=== PATIENT | female | born 1950 | race Caucasian/White ===

== ENCOUNTER 2023-11-14 09:42 | Observation (INO) | payer MEDICARE, SELFPAY ==
[2023-11-14] VITALS (35 sets, daily range): BP systolic 99–161; BP diastolic 57–82; PULSE 54–88; RESP 11–23; TEMP 36.9–37.1; O2SAT 93–99; BMI 22.4; BMI 22.0
--- NOTE | 2023-11-14 09:45 | ED_ITS ---
HPI - Chest Pain 2 General: Chief Complaint: Chest Pain Stated Complaint: chest pains, pain upper back Time Seen by Provider: 11/14/23 09:44 Source: patient Mode of arrival: ambulatory History of Present Illness: 73-year-old female presents emergency ro om with chest pain radiating up from left chest into her upper back and into her left arm. She has not had episodes like this prior she has no known history of coronary artery disease she is a smoker. She has had some diarrhea lately has some mild abdominal discomfort when she takes a deep breath the pain is slightly worse. She has not had any fever sweats chills or productive cough. MD complaint: chest pain Onset (ago): minute(s) Timing of current episode: episodic Onset: during rest Pain location: left chest Pain radiation: none Quality: aching and heaviness Relieving factors: nothing Exacerbating factors: inspiration, palpation and movement Associated symptoms: Deny abdominal pain, diaphoresis, dyspnea, fever(s), leg edema, nausea, palpitations, sense of impending doom, syncope or vomiting Review of Systems 2 Const: Denies: fever(s), chills or diaphoresis Card: Reports: chest pain; Denies: palpitations or syncope Resp: Denies: dyspnea GI: Denies: abdominal pain, nausea or vomiting : Denies: dysuria, urinary frequency or urinary urgency Musc: Denies: neck pain or back pain Skin/Breast: Denies: rash Physical Exam 2 Const: COMMON NORMALS: no acute distress GENERAL APPEARANCE: cooperative and comfortable ORIENTATION/CONSCIOUSNESS: Yes awake, Yes oriented to person, Yes oriented to place and Yes oriented to time HENMT: COMMON NORMALS: normocephalic, atraumatic and hearing grossly normal bilaterally HEAD & SCALP: normocephalic and atraumatic Resp: COMMON NORMALS: normal respiratory effort, No retractions, No use of accessory muscles and clear to auscultation bilaterally AUSCULTATION: clear to auscultation bilaterally Cardio: COMMON NORMALS: regular rate, regular rhythm and No murmurs present (Cardio) RATE: regular rate RHYTHM: regular rhythm GI: COMMON NORMALS: Soft to palpation and No hepatosplenomegaly present A USCULTATION: Yes normoactive bowel sounds PALPATION: Yes Soft to palpation, No Tenderness to palpation present (GI), No Guarding due to palpation present (GI) and Yes No hepatosplenomegaly present Extremity: COMMON NORMALS: normal to inspection, capillary refill normal, no clubbing, cyanosis or edema, no calf tenderness and no pedal edema Neuro: SENSORIUM/ORIENTATION: Yes oriented to person, Yes oriented to place and Yes oriented to time Skin: COMMON NORMALS: no rashes or lesions noted GENERAL SKIN EXAM: no rashes or lesions noted Course 2 Vital Signs: Vital signs: Vital Signs Temperature 98.8 F 11/14/23 09:53 Pulse Rate 81 11/14/23 11:10 Respiratory Rate 22 H 11/14/23 11:10 Blood Pressure 124/60 11/14/23 11:10 Pulse Oximetry 97 11/14/23 11:10 Oxygen Delivery Me thod Room Air 11/14/23 09:53 MDM - Chest Pain Medical Decision Making Initial EKG shows lateral ST depression in V45 and 6. After application of topical nitro patient reports significant improvement of symptoms and repeat EKG shows partial resolution of the ST depression. Initial troponin is 11. Her description of her symptoms is a little less convincing is radiation into her back but is also worse when she moves or when she takes a deep breath. EKG changes along with the response to nitro very concerning. Will admit the patient to observation Medical Records I reviewed the patient's medical records. Lab Data I reviewed the patient's lab results. 11/14/23 10:00 11/14/23 10:00 Radiology Impressions Chest X-Ray 11/14/23 09:45 IMPRESSION: Negative chest exam. Laboratory Results WBC 12.41 10^3/uL (3.29-11.43) H 11/14/23 10:00 RBC 5.21 10^6/uL (3.85-5.65) 11/14/23 10:00 Hgb 15.40 g/dL (11.27-16.99) 11/14/23 10:00 Hct 45.6 % (36-47) 11/14/23 10:00 MCV 87.5 fl (85-98) 11/14/23 10:00 MCH 29.6 pg (27-33) 11/14/23 10:00 MCHC 33.8 g/dL (30-55) 11/14/23 10:00 RDW 12.1 % (12.1-15.1) 11/14/23 10:00 Plt Count 326 10^3/cmm (157-399) 11/14/23 10:00 MPV 9.0 fL (7.4-10.4) 11/14/23 10:00 Neut % (Auto) 90.2 % 11/14/23 10:00 Lymph % (Auto) 5.6 % 11/14/23 10:00 [place] % (Auto) 2.9 % 11/14/23 10:00 Eos % (Auto) 0.2 % 11/14/23 10:00 Baso % (Auto) 0.4 % 11/14/23 10:00 Neut # (Auto) 11.20 10^3/uL (1.8-7.7) H 11/14/23 10:00 Lymph # (Auto) 0.7 10^3/uL (0.8-4.8) L 11/14/23 10:00 [place] # (Auto) 0.4 10^3/uL (0.2-0.9) 11/14/23 10:00 Eos # (Auto) 0.0 10^3/uL (0.0-0.8) 11/14/23 10:00 Baso # (Auto) 0.1 10^3/uL (0.0-0.1) 11/14/23 10:00 Nucleated RBC % (auto) 0 % 11/14/23 10:00 Nucleated RBCs # 0.0 /100WBC 11/14/23 10:00 Sodium 135 mmol/L (136-145) L 11/14/23 10:00 Potassium 4.1 mmol/L (3.5-5.1) 11/14/23 10:00 Chloride 101 mmol/L (98-107) 11/14/23 10:00 Carbon Dioxide 21 mmol/L (22-29) L 11/14/23 10:00 Anion Gap 17.1 (5-19) 11/14/23 10:00 BUN 13 mg/dL (8-23) 11/14/23 10:00 Creatinine 0.8 mg/dL (0.5-0.9) 11/14/23 10:00 GFR Calculation Not Reportable 11/14/23 10:00 Glucose 156 mg/dL (65-115) H 11/14/23 10:00 Calculated Osmolality 283 mOsm/kg (285-295) L 11/14/23 10:00 Calcium 9.3 mg/dL (8.5-10.5) 11/14/23 10:00 Total Bilirubin 0.7 mg/dL (0.15-1.2) 11/14/23 10:00 AST 32 U/L (0-32) 11/14/23 10:00 ALT 28 U/L (0-33) 11/14/23 10:00 Alkaline Phosphatase 95 U/L (35-105) 11/14/23 10:00 Troponin T Baseline 11 ng/L (0-10) H 11/14/23 10:00 Total Protein 6.8 g/dL (6.6-8.7) 11/14/23 10:00 Albumin 4.3 g/dL (3.5-5.2) 11/14/23 10:00 Globulin 2.5 g/dL (1.3-4.6) 11/14/23 10:00 Lipase 16 U/L (13-60) 11/14/23 10:00 All radiology interpretation(s) finalized by discharge Discharge Plan Discharge Patient Disposition: Placed in Observation Clinical Impression: Chest pain, Unstable angina pectoris, Acute electrocardiogram changes Coding Level of Care Code ED Roller Leveler Operator for Nikia Lechuga
--- NOTE | 2023-11-14 09:45 | XRR_ITS ---
PROCEDURE INFORMATION: Exam: XR Chest Exam date and time: 11/14/2023 10:13 AM Age: 73 years old Clinical indication: Dyspnea; Additional info: Dyspnea/cough TECHNIQUE: Imaging protocol: Radiologic exam of the chest. Views: 1 view. COMPARISON: No relevant prior studies available. FINDINGS: Lungs: Unremarkable. No consolidation. Pleural spaces: Unremarkable. No pleural effusion. No pneumothorax. Heart/Mediastinum: Unremarkable. No cardiomegaly. Bones/joints: Unremarkable for age. XR/XR chest 1V portable [id number] IMPRESSION: Negative chest exam.
--- NOTE | 2023-11-14 09:45 | ECG_ITS ---
[facility] Test Date: 2023-11-14 Pat Name: Carmenza Oscar Department: Room: Gender: Female Knowledge Management Consultant: : 1950 Requested By: Breezy Harris Order Number: [id number] Mendy MD: Lorenzo Bahena M.D. Measurements Intervals [place] Rate: 83 P: 76 VA: 143 QRS: 76 QRSD: 82 T: 90 QT: 318 QTc: 374 Interpretive Statements SINUS RHYTHM POSSIBLE LEFT ATRIAL ENLARGEMENT [-0.1mV P-WAVE IN V1/V2] NONSPECIFIC ST & T-WAVE ABNORMALITY No previous ECG available for comparison Electronically Signed On 11-15-2023 7:55:26 NETWORK SYSTEMS OPERATOR by Lorenzo Bahena M.D. [email or web address] south po[facility] [id number]
[2023-11-14] MEDS: aspirin 81 mg Chew Tablet 324 MG PO (09:57)
[2023-11-14] MEDS: nitroglycerin 1 gm/inch oint Pkt 1 INCH TOPICAL (09:59)
[2023-11-14 10:11] LABS: Basophils # 0.1 10^3/uL (0.0-0.1); Basophils % 0.4 %; Eosinophils % 0.2 %; Hematocrit 45.6 % (36-47); Lymphocytes # 0.7 10^3/uL (0.8-4.8); Lymphocytes % 5.6 %; Mean Corpuscular HGB Conc 33.8 g/dL (30-55); Mean Corpuscular Hemoglobin 29.6 pg (27-33); Mean Corpuscular Volume 87.5 fl (85-98); Monocytes # 0.4 10^3/uL (0.2-0.9); Monocytes % 2.9 %; Neutrophils % 90.2 %; Nucleated Red Blood Cells % 0 %; Platelet Count 326 10^3/cmm (157-399); Red Blood Count 5.21 10^6/uL (3.85-5.65); Red Cell Distribution Width 12.1 % (12.1-15.1); White Blood Count 12.41 10^3/uL (3.29-11.43)
[2023-11-14 10:28] LABS: Alanine Aminotransferase 28 U/L (0-33); Albumin Level 4.3 g/dL (3.5-5.2); Alkaline Phosphatase 95 U/L (35-105); Anion Gap 17.1 (5-19); Aspartate Amino Transferase 32 U/L (0-32); Blood Urea Nitrogen 13 mg/dL (8-23); Calcium 9.3 mg/dL (8.5-10.5); Carbon Dioxide 21 mmol/L (22-29); Chloride 101 mmol/L (98-107); Creatinine Clr Calc Pharmacy 59.7639; Globulin 2.5 g/dL (1.3-4.6); Glucose 156 mg/dL (65-115); Lipase 16 U/L (13-60); Osmolality Calculated 283 mOsm/kg (285-295); Potassium 4.1 mmol/L (3.5-5.1); Sodium 135 mmol/L (136-145); Total Bilirubin 0.7 mg/dL (0.15-1.2); Total Protein 6.8 g/dL (6.6-8.7)
[2023-11-14 10:29] LABS: Troponin(5th) Baseline 11 ng/L (0-10)
--- NOTE | 2023-11-14 11:54 | ECG_ITS ---
[facility] Test Date: 2023-11-14 Pat Name: Carmenza Oscar Department: Room: 104 Gender: Female Night Warehouse Manager: : 1950 Requested By: Breezy Harris Order Number: [id number] Mendy MD: Lorenzo Bahena M.D. Measurements Intervals [place] Rate: 74 P: 72 [place]: 134 QRS: 77 QRSD: 82 T: 106 QT: 318 QTc: 355 Interpretive Statements SINUS RHYTHM POSSIBLE LEFT ATRIAL ENLARGEMENT [-0.1mV P-WAVE IN V1/V2] NONSPECIFIC ST & T-WAVE ABNORMALITY Compared to ECG 11/14/2023 10:20:24 No significant changes Electronically Signed On 11-15-2023 8:03:47 SECURITY SCREENER by Lorenzo Bahena M.D. [id number]
[2023-11-14 12:08] LABS: Adenovirus Not Detected (NOT DETECT); Chlamydia Pneumoniae Not Detected (NOT DETECT); Coronavirus 229E,HKU1,NL63,OC4 Not Detected (NOT DETECT); Human Metapneumovirus Not Detected (NOT DETECT); Human Rhinovirus/Enterovirus Not Detected (NOT DETECT); Influenza A Not Detected (NOT DETECT); Influenza A H1 Not Detected (NOT DETECT); Influenza A H1-2009 Not Detected (NOT DETECT); Influenza A H3 Not Detected (NOT DETECT); Influenza B Not Detected (NOT DETECT); Mycoplasma Pneumoniae Not Detected (NOT DETECT); Parainfluenza Virus Type 1 Not Detected (NOT DETECT); Parainfluenza Virus Type 2 Not Detected (NOT DETECT); Parainfluenza Virus Type 3 Not Detected (NOT DETECT); Parainfluenza Virus Type 4 Not Detected (NOT DETECT); Respiratory Syncytial Virus A Not Detected (NOT DETECT); Respiratory Syncytial Virus B Not Detected (NOT DETECT); SARS-COV-2 Not Detected (NOT DETECT)
[2023-11-14 12:08] LABS: Urine Appearance Hazy (CLEAR); Urine Color Yellow (Yellow); pH Urine 5 (5-7)
[2023-11-14 12:09] LABS: Add Urine Microscopic? YES; Bacteria Urine TRACE /hpf; Bilirubin Urine 1+ (Negative); Blood Urine Trace (Negative); Glucose Urine UA Norm (Normal); Ketones Urine 2+ (Negative); Leukocyte Esterase Urine Negative (Negative); Nitrate Urine Negative (Negative); Protein Urine Trace (Negative); RBC Urine RARE /hpf (0-2); Specific Gravity, Urine 1.025 (1.005-1.030); Squamous Epithelial Cell Urine 0-4 /hpf (0-5); Urobilinogen Urine 1 mg/dL (Negative)
[2023-11-14 12:10] LABS: Add Urine Culture? No; Mucus Urine 2+ /hpf
[2023-11-14 12:15] LABS: Troponin 5 2HR 14.72 ng/L (0-10); Troponin 5 2HR Delta 3.72 ABS# (0-10)
[2023-11-14 15:23] LABS: Troponin(5th) Baseline 41 ng/L (0-10)
[2023-11-14 17:00] LABS: Troponin 5 2HR 72.09 ng/L (0-10)
[2023-11-14 17:12] LABS: Troponin 5 2HR Delta 31.09 ABS# (0-10)
--- NOTE | 2023-11-14 17:27 | P.HP_ITS ---
Providers/Chief Complaint 2 Admitting Physician: Benny Singh DO Primary Care Provider: Melly Balbuena MD Chief Complaint: chest pains, pain upper back History of Present Illness Carmenza Oscar is a 73 year old female with a past medical history of hypothyroidism, who presented to the emergency room today with chest pain that radiated into her neck, jaw and left upper arm. She reports she has never had any symptoms like this in the past. She denies any previous cardiac history, but does endorse daily cigarette use. She describes pain as a tightness across the left side of her chest that worsens with activity and improved with nitro administration. She said that she was not short of breath, but she did feel she was having difficulty taking a full breath. She also reports that she has had some gastrointestinal symptoms recently, with nausea and diarrhea, but no other illness. In the emergency room, she was noted to have some mild ST-T depression in leads V4-6. Chest pain improved with Nitropaste. Her labs demonstrated a mild leukocytosis to 12.4. Her glucose was 156 this morning. Her initial troponin was 11. Chest x-ray was unremarkable. Review of Systems 2 General: Reports: 10 or more systems reviewed and unremarkable except in HPI and below Const: Denies: fever(s) or chills Card: Reports: chest pain; Denies: palpitations Resp: Denies: dyspnea GI: Reports: nausea and diarrhea; Denies: abdominal pain : Denies: flank pain Musc: Reports: neck pain Medications/Allergies Home Medications Medication Instructions Recorded Confirmed Last Taken Type Lactobacillus 40-Bifidobact 1 cap PO DAILY 11/14/23 11/14/23 Unknown History 3-S.thermophilus 100 billion cell capsule (Probiotic) cholecalciferol (vitamin D3) 25 25 mcg PO DAILY 11/14/23 11/14/23 Unknown History mcg (1,000 unit) tablet (Vitamin D3) levothyroxine 88 mcg tablet 88 mcg PO DAILY 11/14/23 11/14/23 11/13/23 History iiijgtrb-pxb-yhijq ac 400 1 tab PO DAILY 11/14/23 11/14/23 Unknown History mcg-calcium carb 500 mg-vit K1 20 mcg tablet (Women's 50 Plus Multivitamin) quercetin 500 mg capsule 500 mg PO DAILY 11/14/23 11/14/23 Unknown History Allergies Allergy/AdvReac Type Severity Reaction Status Date / Time codeine Allergy Unknown Verified 11/14/23 10:22 epinephrine Allergy Unknown Verified 11/14/23 10:22 Penicillins Allergy Unknown Verified 11/14/23 10:22 Sulfa (Sulfonamide Allergy Unknown Verified 11/14/23 10:22 Antibiotics) Tetracyclines Allergy Unknown Verified 11/14/23 10:22 CT CONTRAST Allergy Unknown Uncoded 11/14/23 10:22 Vitals/I&O/Wt Last Vital Signs Temp 98.8 F 11/14/23 09:53 Pulse 79 11/14/23 15:52 Resp 15 11/14/23 15:52 BP 149/82 11/14/23 16:36 Pulse Ox 97 11/14/23 15:52 O2 Del Method Nasal Cannula 11/14/23 15:20 Weight last 48 hrs Weight 132 lb 4.8 oz Weight 135 lb Physical Exam 2 Narrative: General: Cooperative patient in no apparent distress. Well developed. HEENT: Normocephalic, Atraumatic. External ears normal. Nasal passages patent without drainage. MMM. Heart: RRR. Resp: LCTA. No respiratory distress, no use of accessory muscles. Abd: Soft, non-tender. Non-distended. Extremities: No edema. Skin: No rash or lesions on exposed areas. Data 11/14/23 10:00 11/14/23 10:00 A&P Assessment and plan (1) Chest pain: Qualifiers: Chest pain type: precordial pain Qualified Code(s): R07.2 - Precordial pain (2) Acquired hypothyroidism: (3) Hyperglycemia, unspecified: (4) Hyponatremia: (5) Tobacco use: Plan 73-year-old female admitted for chest pain. Will admit to cardiac stepdown for observation. Received aspirin and nitropaste in ER with improvement in chest pain. No previous cardiac history or similar episodes. Continue to trend troponins and EKGs. Telemetry. Will check additional labs today including lipid panel, A1c, TSH. Ordered stress test for tomorrow if able to be performed. Consider cardiology consult. Will monitor for now, but will contact if pain worsens or if troponins or EKGs indicate ischemia. VTE PPx with SCD's. May order pharmacologic if indicated during observation period. Regular diet for now, will make n.p.o. at midnight. Continue levothyroxine home medication. Code Status: Full IVF: None DVT PPx: SCDs GI PPx: None ABx: None Diet: Regular Discharge plan: Home when appropriate Attestations 2 Medical Necessity Statement*: Admit for observation for chest pain rule out, serial labs, EKGs, stress test. Coding Level of Care Code Acute Code for Chg Fwd Moderate MDM includes number and complexity of problems actively addressed during encounter, amount and/or complexity of data reviewed/ordered and described risk of complication, morbidity or mortality of management as documented Diagnoses Precordial pain R07.2 Chest pain type: precordial pain Acquired hypothyroidism E03.9 Hyperglycemia, unspecified R73.9 Hyponatremia E87.1 Tobacco use Z72.0
--- NOTE | 2023-11-14 17:51 | ECG_ITS ---
[facility] Test Date: 2023-11-14 Pat Name: Carmenza Oscar Department: Room: 104 Gender: Female High School Counselor: : 1950 Requested By: Benny Pleitez Order Number: [id number] Mendy MD: Lorenzo Bahena M.D. Measurements Intervals [place] Rate: 73 P: 78 [place]: 145 QRS: 76 QRSD: 74 T: 93 QT: 325 QTc: 359 Interpretive Statements SINUS RHYTHM NONSPECIFIC ST & T-WAVE ABNORMALITY Compared to ECG 11/14/2023 11:54:03 No significant changes Electronically Signed On 11-15-2023 7:54:18 SCHOOL BUS DRIVER/CUSTODIAN by Lorenzo Bahena M.D. [email or web address] hospitalSiteminis/store/[id number]
[2023-11-14 20:55] LABS: Troponin 5 6HR 162.4 ng/L (0-10); Troponin 5 6HR Delta 121.4 ng/L (0-12)
[2023-11-14] MEDS: famotidine 20 mg Tablet PO (21:41)
[2023-11-14] MEDS: heparin drip 25,000 UNIT/500 ML PREMIX 16.8 UNIT IV (22:49)
[2023-11-14] MEDS: atorvastatin 40 mg Tablet 80 MG PO (23:03)
[2023-11-14] MEDS: heparin 5,000 unit/mL INJ 1 mL IV (23:07)
[2023-11-15] VITALS (14 sets, daily range): BP systolic 106–140; BP diastolic 59–74; PULSE 62–91; RESP 12–28; TEMP 36.4–36.9; O2SAT 94–99
[2023-11-15 04:21] LABS: Basophils % 0.6 %; Eosinophils % 0.4 %; Hematocrit 41.9 % (36-47); Lymphocytes # 1.7 10^3/uL (0.8-4.8); Lymphocytes % 24.7 %; Mean Corpuscular HGB Conc 33.7 g/dL (30-55); Mean Corpuscular Hemoglobin 29.4 pg (27-33); Mean Corpuscular Volume 87.5 fl (85-98); Mean Platelet Volume 9.2 fL (7.4-10.4); Monocytes # 0.4 10^3/uL (0.2-0.9); Monocytes % 6.1 %; Neutrophils # 4.66 10^3/uL (1.8-7.7); Neutrophils % 67.5 %; Nucleated Red Blood Cells % 0 %; Platelet Count 297 10^3/cmm (157-399); Red Blood Count 4.79 10^6/uL (3.85-5.65); Red Cell Distribution Width 12.3 % (12.1-15.1); White Blood Count 6.91 10^3/uL (3.29-11.43)
[2023-11-15 04:43] LABS: Estmated Average Glucose 134; Hemoglobin A1C 6.3 % (4.0-6.0)
[2023-11-15 04:50] LABS: Blood Urea Nitrogen 12 mg/dL (8-23); Calcium 9.1 mg/dL (8.5-10.5); Carbon Dioxide 21 mmol/L (22-29); Chloride 101 mmol/L (98-107); Glucose 123 mg/dL (65-115); Osmolality Calculated 281 mOsm/kg (285-295); Phosphorus 2.8 mg/dL (2.5-4.5); Sodium 135 mmol/L (136-145); Thyroid Stimulating Hormone 1.85 uIU/mL (0.27-4.20)
[2023-11-15 05:42] LABS: Chol HDL Ratio 5.41 mg/dL (0.0-4.40); Cholesterol 173 mg/dL (0-200); HDL Cholesterol 32 mg/dL (60-100); LDL Cholesterol Calculated 99 mg/dL (50-129); LDL HDL Ratio 3.09 RATIO (0.00-3.22); Triglycerides 210 mg/dL (0-150)
[2023-11-15 06:07] LABS: Partial Thromboplastin Time 84.3 SECONDS (23.9-36.7)
--- NOTE | 2023-11-15 08:41 | P.CONIM_ITS ---
Providers/Reason For Consult 2 Consulting Physician/Specialty*: CASSIUS Ward MD/cardiology Reason for Consult*: Patient with chest pain, elevated troponin and abnormal EKG Requesting Physician: Dr. Gilbert Attending Physician: Karyn Gilbert MD Primary Care Provider: Melly Balbuena MD History of Present Illness History of Present Illness Carmenza Oscar is a 73 year old female with a history of hypothyroidism, presents with rather sudden onset of left-sided chest pain, rating to the back, between the shoulder blades, to the neck, left side of the jaw, to the left shoulder and the left arm. The nature of the pain gradually got worse. The pain went up to 9/10. At this point, she decided to come to the hospital. She did not have any associated nausea vomiting. She had some shortness of breath.Might have had some sweating. No other associated symptoms or radiation of pain. In the emergency room, she was given aspirin to chew and was placed on Nitropaste. Pain is the IV site easing off. Total duration of the pain was 6- 7 hours. At the time of my examination, patient is pain-free. Patient has no previous history for coronary disease, myocardial infarction or congestive heart failure. No history for hypertension, diabetes or dyslipidemia. She has a longstanding history of smoking abuse, 8 to 10 cigarettes a day for the last 50 years or so. She also has history of hypothyroidism, on thyroid supplement. She had a colorectal surgery approximately 20 years ago followed by chemo radiation. She had adenocarcinoma of the colorectal region. Patient was told about some spots in the lung a couple of years ago. She was advised to Have follow-up evaluations.? History of COPD and bullous emphysema? She also has a remote history of some palpitations. But has not been on any medication. Her older sister age 78 had a myocardial infarction while having some orthopedic surgery. Another sister had ablation for arrhythmia. One of her daughters also had ablation. Review of Systems 2 Narrative: CONSTITUTIONAL: No fever or chills. EYES: No blurring of vision or other visual disturbances lately. ENT: No hoarseness of voice, auditory disturbances or sore throat. CARDIOVASCULAR: As mentioned above. RESPIRATORY: As mentioned above GASTROINTESTINAL: Colorectal surgery as mentioned above. She had an ileostomy bag which was later on takedown GENITOURINARY: No dysuria or hematuria. INTEGUMENTARY: No skin rashes or history of skin cancer. NEURO: No transient ischemic attacks or amaurosis. PSYCHIATRIC: No history of psychosis or major depression. HEMATOLOGIC: No bleeding disorders or significant anemia. ENDOCRINE: As mentioned above MUSCULOSKELETAL: No recent joint pain or swelling. ALLERGY/IMMUNOLOGY: As mentioned above. Medications/Allergies Home Medications Medication Instructions Recorded Confirmed Last Taken Type Lactobacillus 40-Bifidobact 1 cap PO DAILY 11/14/23 11/14/23 Unknown History 3-S.thermophilus 100 billion cell capsule (Probiotic) cholecalciferol (vitamin D3) 25 25 mcg PO DAILY 11/14/23 11/14/23 Unknown History mcg (1,000 unit) tablet (Vitamin D3) levothyroxine 88 mcg tablet 88 mcg PO DAILY 11/14/23 11/14/23 11/13/23 History insrodap-tvm-dzsgn ac 400 1 tab PO DAILY 11/14/23 11/14/23 Unknown History mcg-calcium carb 500 mg-vit K1 20 mcg tablet (Women's 50 Plus Multivitamin) quercetin 500 mg capsule 500 mg PO DAILY 11/14/23 11/14/23 Unknown History Allergies Allergy/AdvReac Type Severity Reaction Status Date / Time codeine Allergy Unknown Verified 11/14/23 10:22 epinephrine Allergy Unknown Verified 11/14/23 10:22 Penicillins Allergy Unknown Verified 11/14/23 10:22 Sulfa (Sulfonamide Allergy Unknown Verified 11/14/23 10:22 Antibiotics) Tetracyclines Allergy Unknown Verified 11/14/23 10:22 CT CONTRAST Allergy Unknown Uncoded 11/14/23 10:22 Current Medications Generic Name Dose Route Start Last Admin Trade Name Freq PRN Reason Stop Dose Admin Atorvastatin Calcium 80 mg 11/14/23 21:50 11/14/23 23:03 Atorvastatin 40 Mg Tablet PO 80 mg BEDTIME BRUNA Administration Famotidine 20 mg 11/14/23 21:00 11/14/23 21:41 Famotidine 20 Mg Tablet PO 20 mg BID BRUNA Administration Heparin Sodium (Porcine) 0 unit 11/14/23 21:49 11/14/23 23:07 Heparin 5,000 Unit/Ml Inj 1 Ml IV 3,000 unit PRN PRN Administration Heparin weight-base protocol Protocol Heparin Sodium/Sodium Chloride 25,000 unit in 500 mls @ 0 mls/hr 11/14/23 22:00 11/15/23 06:20 Heparin Drip IV 13.33 unit/kg/hr .Q0M BRUNA 16 mls/hr Titration Protocol Per Protocol Vitals/I&O/Wt Last Vital Signs Temp 98.1 F 11/15/23 07:52 Pulse 72 11/15/23 07:52 Resp 14 11/15/23 07:52 BP 106/59 11/15/23 07:52 Pulse Ox 95 11/15/23 07:52 O2 Del Method Room Air 11/15/23 07:52 11/14/23 11/15/23 11/15/23 22:59 06:59 14:59 Intake Total 126.28 / 126.28 Output Total 0 / 0 0 / 0 Balance 0 / 0 126.28 / 126.28 Weight last 48 hrs Weight 133 lb Weight 132 lb 4.8 oz Weight 135 lb Physical Exam 2 Narrative: GENERAL: The patient is alert and oriented times three. Not in any acute distress. HEENT: No significant pallor, icterus or lymphadenopathy.Oral cavity: There are no mucous membrane lesions. NECK: Trachea appears to be central. No masses noted. No JVD or thyromegaly appreciated. RESPIRATORY: Chest is symmetrical. No intercostals muscle retraction or any accessory muscle activation. There is no chest wall tenderness. Breath sounds are heard bilaterally. No rales or rhonchi heard. No evidence of any consolidation. BREASTS: Deferred. HEART: The heart sounds are normal. No S3 or S4. No significant murmurs. No pericardial rub ABDOMEN: No vessel pulsations or distention. No tenderness. No organomegaly appreciated. Bowel sounds are normally heard. : Deferred. RECTAL: Deferred. LYMPHATIC: No lymphadenopathy noted in the neck. EXTREMITIES: No edema or cyanosis. No clubbing. MUSCULOSKELETAL: No acute joint deformities or swelling SKIN: There are no significant rashes or ecchymosis NEUROPSYCHIATRIC: The patient is alert and oriented x3. Appears to be in a good mood. No tremors or rigidity noted. Data 11/15/23 04:00 11/15/23 04:00 Other Labs: Laboratory Last Values WBC 6.91 10^3/uL (3.29-11.43) 11/15/23 04:00 RBC 4.79 10^6/uL (3.85-5.65) 11/15/23 04:00 Hgb 14.10 g/dL (11.27-16.99) 11/15/23 04:00 Hct 41.9 % (36-47) 11/15/23 04:00 MCV 87.5 fl (85-98) 11/15/23 04:00 MCH 29.4 pg (27-33) 11/15/23 04:00 MCHC 33.7 g/dL (30-55) 11/15/23 04:00 RDW 12.3 % (12.1-15.1) 11/15/23 04:00 Plt Count 297 10^3/cmm (157-399) 11/15/23 04:00 MPV 9.2 fL (7.4-10.4) 11/15/23 04:00 Neut % (Auto) 67.5 % 11/15/23 04:00 Lymph % (Auto) 24.7 % 11/15/23 04:00 Bibb % (Auto) 6.1 % 11/15/23 04:00 Eos % (Auto) 0.4 % 11/15/23 04:00 Baso % (Auto) 0.6 % 11/15/23 04:00 Neut # (Auto) 4.66 10^3/uL (1.8-7.7) 11/15/23 04:00 Lymph # (Auto) 1.7 10^3/uL (0.8-4.8) 11/15/23 04:00 Bibb # (Auto) 0.4 10^3/uL (0.2-0.9) 11/15/23 04:00 Eos # (Auto) 0.0 10^3/uL (0.0-0.8) 11/15/23 04:00 Baso # (Auto) 0.0 10^3/uL (0.0-0.1) 11/15/23 04:00 Nucleated RBC % (auto) 0 % 11/15/23 04:00 Nucleated RBCs # 0.0 /100WBC 11/15/23 04:00 APTT 84.3 SECONDS (23.9-36.7) H 11/15/23 05:05 Sodium 135 mmol/L (136-145) L 11/15/23 04:00 Potassium 4.0 mmol/L (3.5-5.1) 11/15/23 04:00 Chloride 101 mmol/L (98-107) 11/15/23 04:00 Carbon Dioxide 21 mmol/L (22-29) L 11/15/23 04:00 Anion Gap 17.0 (5-19) 11/15/23 04:00 BUN 12 mg/dL (8-23) 11/15/23 04:00 Creatinine 0.7 mg/dL (0.5-0.9) 11/15/23 04:00 GFR Calculation Not Reportable 11/15/23 04:00 Glucose 123 mg/dL (65-115) H 11/15/23 04:00 Estimat Average Glucose 134 11/15/23 04:00 Hemoglobin A1c 6.3 % (4.0-6.0) H 11/15/23 04:00 Calculated Osmolality 281 mOsm/kg (285-295) L 11/15/23 04:00 Calcium 9.1 mg/dL (8.5-10.5) 11/15/23 04:00 Phosphorus 2.8 mg/dL (2.5-4.5) 11/15/23 04:00 Magnesium 2.0 mg/dL (1.7-2.3) 11/15/23 04:00 Total Bilirubin 0.7 mg/dL (0.15-1.2) 11/14/23 10:00 AST 32 U/L (0-32) 11/14/23 10:00 ALT 28 U/L (0-33) 11/14/23 10:00 Alkaline Phosphatase 95 U/L (35-105) 11/14/23 10:00 Troponin T Baseline 41 ng/L (0-10) H 11/14/23 14:20 Troponin T 120 Minute 72.09 ng/L (0-10) H 11/14/23 16:27 Delta Troponin T 31.09 ABS# (0-10) H* 11/14/23 16:27 Troponin T Hi Sens 6Hr 162.4 ng/L (0-10) H 11/14/23 20:07 Troponin T Hi Sens 6Hr Delta 121.4 ng/L (0-12) H* 11/14/23 20:07 Total Protein 6.8 g/dL (6.6-8.7) 11/14/23 10:00 Albumin 4.3 g/dL (3.5-5.2) 11/14/23 10:00 Globulin 2.5 g/dL (1.3-4.6) 11/14/23 10:00 Triglycerides 210 mg/dL (0-150) H 11/15/23 04:00 Cholesterol 173 mg/dL (0-200) 11/15/23 04:00 LDL Cholesterol, Calc 99 mg/dL (50-129) 11/15/23 04:00 HDL Cholesterol 32 mg/dL (60-100) L 11/15/23 04:00 LDL/HDL Ratio 3.09 RATIO (0.00-3.22) 11/15/23 04:00 Cholesterol/HDL Ratio 5.41 mg/dL (0.0-4.40) H 11/15/23 04:00 Lipase 16 U/L (13-60) 11/14/23 10:00 TSH 1.85 uIU/mL (0.27-4.20) 11/15/23 04:00 Urine Color Yellow (Yellow) 11/14/23 10:58 Urine Appearance Hazy (CLEAR) A 11/14/23 10:58 Urine pH 5 (5-7) 11/14/23 10:58 Ur Specific [place] 1.025 (1.005-1.030) 11/14/23 10:58 Urine Protein Trace (Negative) 11/14/23 10:58 Urine Glucose (UA) Norm (Normal) 11/14/23 10:58 Urine Ketones 2+ (Negative) H 11/14/23 10:58 Urine Blood Trace (Negative) H 11/14/23 10:58 Urine Nitrate Negative (Negative) 11/14/23 10:58 Urine Bilirubin 1+ (Negative) H 11/14/23 10:58 Urine Urobilinogen 1 mg/dL (Negative) H 11/14/23 10:58 Ur Leukocyte Esterase Negative (Negative) 11/14/23 10:58 Urine RBC Rare /hpf (0-2) 11/14/23 10:58 Urine WBC 5-10 /hpf (0-5) H 11/14/23 10:58 Ur Squamous Epith Cells 0-4 /hpf (0-5) H 11/14/23 10:58 Amorphous Sediment Not Reportable 11/14/23 10:58 Urine Bacteria Trace /hpf (NONE) 11/14/23 10:58 Urine Mucus 2+ /hpf 11/14/23 10:58 Coronavirus 229E (PCR) Not detected (NOT DETECT) 11/14/23 10:08 SARS-CoV-2 (PCR) Not detected (NOT DETECT) 11/14/23 10:08 EKG 1: My Interpretation: Normal sinus rhythm with possible left atrial enlargement. Nonspecific ST-T changes in the inferolateral leads. A&P Assessment and plan (1) Unstable angina pectoris: Patient symptoms are suggestive of unstable angina complicated with a non-ST elevation myocardial infarction. At this point, she will be treated with a beta-paddy, aspirin, Plavix, nitrates and Lovenox. Echocardiogram would be helpful to evaluate LV function and rule out other pathologies. (2) Tobacco use: Patient strongly advised to quit smoking. (3) Acquired hypothyroidism: Clinically she seems to be euthyroid. May continue on the current management. (4) Acute non-ST elevation myocardial infarction (NSTEMI): The EKG changes are nonspecific. In order to further evaluate the patient's coronary status, she may benefit from a cardiac catheterization. Plan The echocardiogram was done and was reviewed. Patient was found to have a dyskinetic inferobasal segment. For further evaluation of the coronary status, a cardiac realization would be appropriate. Discussed with patient, the risksand benefits. The risk of bleeding, hematoma, vascular injury, myocardial infarction, myocardial perforation, malignant cardiac arrhythmias ,CVA, renal failure and other concomitant complications were explained in detail. Patient understood this well and consented to proceed. We may go ahead and do schedule the procedure as early as possible Based on the angiogram findings, further recommendations will be made. Consult Attestations 2 Medical Necessity Statement: Patient requires continued hospital stay for close monitoring and further management Coding Level of Care Code 56381 Diagnoses Unstable angina pectoris I20.0 Tobacco use Z72.0 Acquired hypothyroidism E03.9 Acute non-ST elevation myocardial infarction (NSTEMI) I21.4
--- NOTE | 2023-11-15 08:59 | USCV_ITS ---
Carmenza Oscar Age: 73 Gender: F : 1950 Exam Date: 11/15/2023 10:34 Ordering Phys: Karmen Ward MD ([email or web address]) Technologist: Meir Yanez Exam Location: [facility] – [place] Indication: ? nstemi murmur BP: 130 / 70 HR: 66 Rhythm: Sinus Technical Quality: Adequate MEASUREMENTS (Male / Female) Normal Values 2D ECHO LV Diastolic Diameter PLAX 3.0 cm 4.2 - 5.9 / 3.9 - 5.3 cm LV Systolic Diameter PLAX 2.2 cm IVS Diastolic Thickness 1.1 cm 0.6 - 1.0 / 0.6 - 0.9 cm IVS Systolic Thickness 1.2 cm LVPW Diastolic Thickness 0.8 cm 0.6 - 1.0 / 0.6 - 0.9 cm LVPW Systolic Thickness 1.2 cm LVOT Diameter 2.0 cm LV Ejection Fraction 2D Teich 53.8 % LV Ejection Fraction MOD 2C 84.4 % LV Ejection Fraction 2C AL 85.1 % LA Diameter 3.3 cm IVC Diameter 1.7 cm M-MODE LV Diastolic Diameter MM 3.6 cm 4.2 - 5.9 / 3.9 - 5.3 cm LV Systolic Diameter MM 2.0 cm LV Ejection Fraction MM Teich 76.6 % IVS Diastolic Thickness MM 1.3 cm 0.6 - 1.0 / 0.6 - 0.9 cm IVS Systolic Thickness MM 1.7 cm LVPW Diastolic Thickness MM 1.6 cm 0.6 - 1.0 / 0.6 - 0.9 cm LVPW Systolic Thickness MM 1.5 cm RV Diastolic Diameter MM 1.5 cm Aortic Annulus Diameter 2.9 cm LA Ao Ratio MM 1.3 MV E Point Septal Separation 0.9 cm DOPPLER AV Peak Velocity 178.0 cm/s LVOT Peak Velocity 126.0 cm/s AV Area Cont Eq vti 2.8 cm squared AV Area Cont Eq pk 2.2 cm squared MV Area PHT 2.3 cm squared Mitral E to A Ratio 0.8 MV E' Velocity 36.5 cm/s Mitral E to MV E' Ratio 8.6 Mitral E to LV E' Lateral Ratio 7.9 Mitral E to LV E' Septal Ratio 9.4 TR Peak Velocity 199.0 cm/s TR Peak Gradient 15.8 mmHg TV Peak E Velocity 105.0 cm/s Right Atrial Pressure 3.0 mmHg Pulmonary Artery Systolic Pressu 18.8 mmHg PV Peak Velocity 103.0 cm/s RV Acceleration Time 0.1 s FINDINGS Left Ventricle Normal LV size and ejection fraction of 76%. Slightly dyskinetic basal inferior wall segment.Grade I/IV diastolic dysfunction (abnormal relaxation filling pattern), normal to mildly elevated filling pressures. Right Ventricle The right ventricle is normal in size and function. Right Atrium The right atrium is normal in size. Left Atrium The left atrium is normal in size. Mitral Valve Trace mitral valve regurgitation. Aortic Valve Thickened aortic valve. Tricuspid Valve No gross abnormalities noted Pulmonic Valve Trace pulmonary valve regurgitation. Pericardium Normal pericardium without effusion. Aorta Normal ascending aorta dimension. IVC The inferior vena cava appears normal. CONCLUSIONS Normal LV size and ejection fraction of 76%. Slightly dyskinetic basal inferior wall segment.Grade I/IV diastolic dysfunction (abnormal relaxation filling pattern), normal to mildly elevated filling pressures. Thickened aortic valve. Trace mitral valve regurgitation. Trace pulmonary valve regurgitation. Estimated pulmonary artery peak systolic pressure, probably within normal limits There is no pericardial effusion. There are no intracardiac masses. No similar previous studies are available for comparison Dr Karmen Ward MD [facility] (Electronically Signed) Final Date: 15 November 2023 12:29 S
[2023-11-15] MEDS: levothyroxine 88 mcg Tablet PO (09:46)
[2023-11-15] MEDS: aspirin 81 mg EC Tablet PO (09:46)
[2023-11-15] MEDS: famotidine 20 mg Tablet PO ×2 (09:46→19:27)
--- NOTE | 2023-11-15 11:51 | P.PN_ITS ---
Subjective 2 Subjective: Seen today. She is chest pain-free at this time. Delta troponin overnight at 6 hours 121. Vitals/I&O/Wt Last Vital Signs Temp 98.1 F 11/15/23 07:52 Pulse 72 11/15/23 07:52 Resp 14 11/15/23 07:52 BP 106/59 11/15/23 07:52 Pulse Ox 95 11/15/23 07:52 O2 Del Method Room Air 11/15/23 07:52 11/14/23 11/15/23 11/15/23 22:59 06:59 14:59 Intake Total 126.28 / 126.28 Output Total 0 / 0 0 / 0 Balance 0 / 0 126.28 / 126.28 Weight last 48 hrs Weight 60.328 kg Weight 60.01 kg Weight 61.235 kg Physical Exam 2 Narrative: General: Cooperative patient in no apparent distress. Well developed. HEENT: Normocephalic, Atraumatic. External ears normal. Nasal passages patent without drainage. MMM. Heart: RRR. Resp: LCTA. No respiratory distress, no use of accessory muscles. Abd: Soft, non-tender. Non-distended. Extremities: No edema. Skin: No rash or lesions on exposed areas. Data 11/15/23 04:00 11/15/23 04:00 A&P Assessment and plan (1) Chest pain: Qualifiers: Chest pain type: precordial pain Qualified Code(s): R07.2 - Precordial pain (2) Acquired hypothyroidism: (3) Hyperglycemia, unspecified: (4) Hyponatremia: (5) Tobacco use: Plan 73-year-old female admitted for chest pain. #NSTEMI #Hypothyroidism #Smoker ? Patient does have a history of heart disease in family. Her older sister had 2 heart attacks in the past. She also states her daughter had an angiogram done however she is unaware of the results and whether she had any PCI or not. ? Continue to monitor in cardiac stepdown unit. Continue telemetry ? Received aspirin, Nitropaste in ER with improvement in chest pain. ? Delta troponin +126. ? Start ACS protocol ? Continue aspirin, loaded with Plavix, thereafter Plavix 75 mg daily, continue heparin drip, metoprolol titrate 12.5 twice daily, atorvastatin 80 daily ? Patient on high risk medication heparin drip. APTT will need to be monitored every 6 hours. ? Lipid panel complete. Triglycerides 210, cholesterol 173, LDL 99. ? Hemoglobin A1c 6.3. ? Consult cardiology. I will cancel stress test for now. Patient may need angiogram. Discussed with Dr. Ward. ? Continue levothyroxine ? N.p.o. for cath. Code Status: Full IVF: None DVT PPx: SCDs, on heparin drip GI PPx: None ABx: None Diet: Regular Attestations 2 Medical Necessity Statement*: Needs continued hospitalization for NSTEMI and cardiac workup. Diagnoses Precordial pain R07.2 Chest pain type: precordial pain Acquired hypothyroidism E03.9 Hyperglycemia, unspecified R73.9 Hyponatremia E87.1 Tobacco use Z72.0
--- NOTE | 2023-11-15 12:42 | XACV_ITS ---
Exam Room: [facility] Ht: 165 cm Wt: 60 kg BSA: 1.67 m2 Gender: Female : 1950 Any Known Allergies: Contrast Exam Priority: Routine Procedure(s): Procedure Description: Diagnostic procedure Procedure Description: Left Heart Catheterization Procedure Description: Coronary Angiography Procedure Description: Pressure Wire Ed ANGELES; Diagnostic Cath Status: Urgent Diagnostic Findings * The left main is a medium caliber vessel with no significant distorted lesions. * The left anterior descending artery is a medium caliber vessel it appears to wrap around the LV apex minimally. At the takeoff of the first septal hazmat technician, there is a 60 to 70% stenotic lesion involving the ostium of the first septal hazmat technician. The mid LAD also was found to have around 40 to 50% diffuse narrowing. No other significant stenotic lesions were noted.. * The left circumflex artery is a medium caliber vessel with no significant stenotic lesions. * The intermedius artery] high obtuse marginal branch also was found to be a medium caliber vessel with no significant stenotic lesions. * The right coronary artery is a medium caliber vessel which appears to have a proximal tubular narrowing of around 60%. Right after the second right ventricular branch, the artery appears to be totally occluded. The mid RCA was found to have mild diffuse disease. Grade 2 [id number] collaterals were noted during the left coronary injections. PCI Status: Urgent PCI LVEF Assessed: No Interventional Findings * IFR proximal LD 0.93. Conclusions 1. This 73-year-old white female with a history of smoking abuse and hypothyroidism, presents with a prolonged episode of chest pain and elevated troponin T. Echocardiogram revealed somewhat dyskinetic inferobasal segment with normal LV ejection fraction. In view of her clinical presentation and the abnormal objective findings, in order to further evaluate the coronary status, a cardiac catheterization was recommended. Patient underwent left heart catheterization with left and right coronary angiogram today. The findings are as follows. 2. 1. Normal left main. 2. Moderately severe disease in the proximal to mid LAD. 3. No significant lesions in the circumflex artery 4. No significant lesions in the intermedius artery. 5. 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 Grade 3. [id number] collaterals. LVEDP of 14 mmHg. 3. I discussed and reviewed the cardiac catheterization data with the Dr. Pelletier. It was thought to be appropriate to consider an FFR on the LAD lesion. The FFR was found to be 0.93. Based on this, it was decided to treat her medically. Diagnostic RX Recommendation: medical therapy and/or counseling LV EDP: 14 mmHg Left Ventriculography Findings: * The LV gram was not performed because LV irritability. The LVEDP was 40 mmHg. Pressures Phase:Rest AO : 107 / 54 ( 70 ) @ 3:37:00 PM 80 / 52 ( 65 ) @ 3:38:00 PM 81 / 54 ( 68 ) @ 3:41:00 PM 123 / 59 ( 84 ) @ 3:46:00 PM 121 / 59 ( 83 ) @ 3:46:00 PM 150 / 60 ( 84 ) @ 3:52:00 PM LV : 124 / 0 / 15 @ 3:46:00 PM 123 / -2 / 14 @ 3:46:00 PM Valves Phase:DefaultPhase AV : 1.0 @ 4:06:38 PM AV Mean Gradient: 0.0 @ 4:06:38 PM Clinical Evaluation EBL: 5mL-10mL Procedural Details Pre-Procedure Time Out. Identified patient by full name and date of as verbalized by the patient/guarantor. Does the consent match the physician's order: Yes. Accurate & Complete Informed Consent: Yes. Inpatient/Outpatient History & Physical on Chart: Yes. If H&P is completed, is and addenduem needed: No; If yes, is the addendum complete: N/A. Visualize and Verify Site with Patient/Guarantor: N/A. Relevant Radiology Images available: Yes. Pre-op teaching completed and patient verbalized understanding. The risks, benefits, and alternatives of sedation and/or procedure were discussed by physician. The patient agrees to continue. Procedure started. [facility] Clinical Fraility Score: 3: Managing Well. Tile Classifier Indications: ACS > 24 hours. Chest Pain Symptom Assessment: Typical Angina Symptoms. Current Diagnosis : NSTEMI. Correct patient, site and procedure confirmed by cath team. Current diagnosis: NSTEMI. IV Site on Arrival: 18 gauge in the right anticubital. IV Fluids: 0.9% NaCl at KVO. 0 mL infused prior to dental laboratory technician apprentice. Pre Procedural Pulses: right radial was 3+. Oxygen started at 2liters/min via nasal canula. right groin was prepped with chloroprep then draped in the usual sterile fashion. right radial was prepped with chloroprep then draped in the usual sterile fashion. Baseline sample Acquired. HR: 77 BPM. Physician arrived. Physician scrubbed in. Immediate Pre-Procedure Time Out. Correct Patient: Yes; Correct Procedure: Yes; Correct Site: Yes; Correct Patient Position: Yes; Correct Supplies: Yes; Dried Flammable Prep: Yes; Blood Products Available: N/A;. Lidocaine 1% infiltrated to the right radial. Arterial access obtained. A 5 [place] Aayush catheter in over wire. Multiple views taken of left coronary artery. Catheter redirected to the RCA. Multiple views taken of right coronary artery. EDP Sample taken: LV 124/-1,15; HR: 74 BPM; SpO2: 100%. Pullback taken: LV 123/-3,14; AO 123/59(84); Mean: 0mmHg, Peak to Peak: 1mmHg, SEP: 10sec/min; HR: 75 BPM; SpO2: 100%. Catheter removed over the exchange wire. Physician scrubbed out. Dr. Pelletier scrubbed in. 6 [place] XB 3 guide catheter was inserted over the wire. IFR guidewire was advanced through the guide catheter to lesion in the LAD. Results: 0.93. Wire out. Guide catheter out. Vital chart was stopped. A TR Band was successful obtaining hemostatsis at the Right Radial artery insertion site. Post Procedure: Pulses reassessed and unchanged. PERRLA. Strong, equal hand client development director bilaterally. No VTE prophylaxis required. Medication's Wasted: Lidocaine 1% = 5 mL. Medication's Wasted: Nitro = 49.8 mg. Medication's Wasted: Heparin = 1000 units. Total IV fluids: 75 mL. Complications: None. Estimated blood loss: 5mL-10mL. Responsiveness - Normal response to verbal stimuli; alert and oriented, PERRLA. Airway - Unaffected, no intervention required; spontaneous ventilation. Circulation: W/N/L, pulses unchanged. Nausea/Vomiting: No. Procedure completed. Patient transferred by bed to 1st floor. Access Site Site: Right Radial artery Sheath Size: 6 Fr Hemostasis Method: TR Band Hemostasis Success: Successful Procedure Medications Start: 3:16 PM Stop: 3:16 PM Medication: Solu-Medrol (methylprednisolone) Amount: 125 mg Route: I.V. Start: 3:16 PM Stop: 3:16 PM Medication: Benadryl Amount: 50 mg Route: I.V. Start: 3:22 PM Stop: 3:22 PM Medication: Versed Amount: 1 mg Route: I.V. Start: 3:22 PM Stop: 3:22 PM Medication: Fentanyl Amount: 50 mcg Route: I.V. Start: 3:25 PM Stop: 3:25 PM Medication: Versed Amount: 1 mg Route: I.V. Start: 3:33 PM Stop: 3:33 PM Medication: Verapamil Amount: 5 mg Route: I.A. Start: 3:33 PM Stop: 3:33 PM Medication: Nitrogylcerin Amount: 200 mcg Route: I.A. Start: 3:38 PM Stop: 3:38 PM Medication: Heparin Amount: 5000 units Route: I.V. Start: 3:55 PM Stop: 3:55 PM Medication: Fentanyl Amount: 50 mcg Route: I.V. I, the attending physician, have reviewed and verified all procedure medications. Yes, all medications given per verbal order History/Risk Factors Hypertension: No Dyslipidemia: No Peripheral Arterial Disease (PAD): No Myocardial Infarction (NM): No Obesity: No Renal Disease: No Tobacco Use: Current/Recent(w/in 1 year) Prior Interventions PCI: No CABG: No Valve Surgery: No Report Signatures Diagnostic Workflow Finalized by Dr Karmen Ward MD [facility] on 11/15/2023 06:17 PM Interventional Workflow Finalized by Dr. Manuel Pelletier MD on 11/15/2023 04:19 PM
--- NOTE | 2023-11-15 12:44 | W.PM.OPSUD ---
Surgery/Procedure H&P Update DATE OF PROCEDURE: November 15, 2023 DATE H&P PERFORMED: 11/15/23 H&P UPDATE INFORMATION: I have reviewed H&P completed within last 30 days, I have examined patient prior to procedure and No changes to prior documentation PREOP DIAGNOSIS: [id number] myocardial infarction/atherosclerotic heart disease PRIMARY INDICATION FOR PROCEDURE: Unstable angina/non-ST elevation myocardial infarction/abnormal/abnormal echocardiogram PLANNED PROCEDURE: Left heart catheterization with left and right coronary angiogram, LV angiogram and possible PCI PATIENT REASSESSED PRIOR TO SEDATION, WITH NO CHANGE NOTED: Yes PHYSICAL EXAM: alert, oriented x 3, clear to auscultation bilaterally and regular rate & rhythm AIRWAY EVAL/ANESTHESIA PLAN: normal airway, see other exam findings, ASA III, Monitored Anesthesia, Local Anesthesia, Risks, benefits & alternatives of sedation and/or procedure discussed and Patient agrees to continue as planned
[2023-11-15] MEDS: clopidogrel 300 mg Tablet PO (13:34)
[2023-11-15] MEDS: sodium chloride 0.9% 1,000 ML 100 ML IV (17:53)
[2023-11-15] MEDS: atorvastatin 40 mg Tablet 80 MG PO (20:58)
[2023-11-15] MEDS: metoprolol tartrate 25 mg Tablet PO (20:58)
[2023-11-16] VITALS (7 sets, daily range): BP systolic 122–141; BP diastolic 61–74; PULSE 60–73; RESP 17–22; TEMP 36.3–36.9; O2SAT 96
[2023-11-16] MEDS: sodium chloride 0.9% 1,000 ML 100 ML IV (01:41)
[2023-11-16 04:39] LABS: Basophils % 0.2 %; Hematocrit 37.2 % (36-47); Lymphocytes # 1.1 10^3/uL (0.8-4.8); Lymphocytes % 25.2 %; Mean Corpuscular HGB Conc 33.6 g/dL (30-55); Mean Corpuscular Hemoglobin 29.6 pg (27-33); Mean Corpuscular Volume 88.2 fl (85-98); Mean Platelet Volume 9.5 fL (7.4-10.4); Monocytes # 0.2 10^3/uL (0.2-0.9); Monocytes % 4.5 %; Neutrophils # 3.06 10^3/uL (1.8-7.7); Neutrophils % 69.6 %; Nucleated Red Blood Cells % 0 %; Platelet Count 269 10^3/cmm (157-399); Red Blood Count 4.22 10^6/uL (3.85-5.65); Red Cell Distribution Width 12.4 % (12.1-15.1)
[2023-11-16 05:04] LABS: Anion Gap 15.3 (5-19); Blood Urea Nitrogen 12 mg/dL (8-23); Calcium 8.7 mg/dL (8.5-10.5); Carbon Dioxide 20 mmol/L (22-29); Chloride 108 mmol/L (98-107); Glucose 146 mg/dL (65-115); Magnesium 1.9 mg/dL (1.7-2.3); Osmolality Calculated 290 mOsm/kg (285-295); Potassium 4.3 mmol/L (3.5-5.1); Sodium 139 mmol/L (136-145)
[2023-11-16] MEDS: aspirin 81 mg EC Tablet PO (08:14)
[2023-11-16] MEDS: levothyroxine 88 mcg Tablet PO (08:14)
[2023-11-16] MEDS: famotidine 20 mg Tablet PO (08:14)
[2023-11-16] MEDS: metoprolol tartrate 25 mg Tablet PO (08:14)
--- NOTE | 2023-11-16 12:19 | PM.PN ---
Subjective Subjective: Patient is feeling okay. She had a cardiac catheterization yesterday. She also relative total occlusion of the distal RCA. Moderately severe disease in the proximal to mid LAD. FFR of the LAD lesion was in the normal range. Moderate disease in the proximal RCA. Based on the angiogram findings, it was decided to treat her medically. Medications: Medication Review Details: Current Medications Aspirin (Aspirin 81 Mg Ec Tablet) 81 mg PO DAILY [facility] Last Admin: 11/16/23 08:14 Dose: 81 mg Atorvastatin Calcium (Atorvastatin 40 Mg Tablet) 80 mg PO BEDTIME [facility] Last Admin: 11/15/23 20:58 Dose: 80 mg Famotidine (Famotidine 20 Mg Tablet) 20 mg PO BID [facility] Last Admin: 11/16/23 08:14 Dose: 20 mg Sodium Chloride (Sodium Chloride 0.9%) 1,000 mls @ 100 mls/hr IV .Q10H [facility] Last Infusion: 11/16/23 11:44 Dose: Infused Levothyroxine Sodium (Levothyroxine 88 Mcg Tablet) 88 mcg PO DAILY [facility] Last Admin: 11/16/23 08:14 Dose: 88 mcg Metoprolol Tartrate (Metoprolol Tartrate 25 Mg Tablet) 25 mg PO BID@0900,2100 [facility] Last Admin: 11/16/23 08:14 Dose: 25 mg Nitroglycerin (Nitroglycerin 0.4 Mg Sublingual Tablet) 0.4 mg SUBLINGUAL Q5M PRN PRN Reason: CHEST PAIN Ondansetron HCl (Ondansetron 2 Mg/Ml Sdv 2 Ml) 4 mg IVP Q8H PRN PRN Reason: vomiting, or N/V if npo Vitals/I&O/Wt Last Vital Signs Temp 98.4 F 11/16/23 09:01 Pulse 66 11/16/23 09:01 Resp 18 11/16/23 09:01 BP 141/74 11/16/23 09:01 Pulse Ox 96 11/16/23 03:43 O2 Del Method Room Air 11/16/23 03:43 11/15/23 11/16/23 11/16/23 22:59 06:59 14:59 Intake Total 444.267 / 762.657 7360 / 0658.433 8966 / 1120 Output Total 0 / 0 Balance 444.267 / 824.222 1069 / 6207.171 4206 / 1120 Weight last 48 hrs Weight 128 lb 9.6 oz Weight 133 lb Weight 132 lb 4.8 oz Physical Exam Narrative: GENERAL: The patient is alert and oriented times three. Not in any acute distress. HEENT: No significant pallor, icterus or lymphadenopathy.Oral cavity: There are no mucous membrane lesions. NECK: Trachea appears to be central. No masses noted. No JVD or thyromegaly appreciated. RESPIRATORY: Chest is symmetrical. No intercostals muscle retraction or any accessory muscle activation. There is no chest wall tenderness. Breath sounds are heard bilaterally. No rales or rhonchi heard. No evidence of any consolidation. BREASTS: Deferred. HEART: The heart sounds are normal. No S3 or S4. No significant murmurs. No pericardial rub ABDOMEN: No vessel pulsations or distention. No tenderness. No organomegaly appreciated. Bowel sounds are normally heard. : Deferred. RECTAL: Deferred. LYMPHATIC: No lymphadenopathy noted in the neck. EXTREMITIES: No edema or cyanosis. No clubbing. Right radial arterial puncture site has no hematoma bleeding MUSCULOSKELETAL: No acute joint deformities or swelling SKIN: There are no significant rashes or ecchymosis NEUROPSYCHIATRIC: The patient is alert and oriented x3. Appears to be in a good mood. No tremors or rigidity noted. Data 11/16/23 04:15 11/16/23 04:15 Other Labs: Laboratory Last Values WBC 4.40 10^3/uL (3.29-11.43) 11/16/23 04:15 RBC 4.22 10^6/uL (3.85-5.65) 11/16/23 04:15 Hgb 12.50 g/dL (11.27-16.99) 11/16/23 04:15 Hct 37.2 % (36-47) 11/16/23 04:15 MCV 88.2 fl (85-98) 11/16/23 04:15 MCH 29.6 pg (27-33) 11/16/23 04:15 MCHC 33.6 g/dL (30-55) 11/16/23 04:15 RDW 12.4 % (12.1-15.1) 11/16/23 04:15 Plt Count 269 10^3/cmm (157-399) 11/16/23 04:15 MPV 9.5 fL (7.4-10.4) 11/16/23 04:15 Neut % (Auto) 69.6 % 11/16/23 04:15 Lymph % (Auto) 25.2 % 11/16/23 04:15 [place] % (Auto) 4.5 % 11/16/23 04:15 Eos % (Auto) 0.0 % 11/16/23 04:15 Baso % (Auto) 0.2 % 11/16/23 04:15 Neut # (Auto) 3.06 10^3/uL (1.8-7.7) 11/16/23 04:15 Lymph # (Auto) 1.1 10^3/uL (0.8-4.8) 11/16/23 04:15 [place] # (Auto) 0.2 10^3/uL (0.2-0.9) 11/16/23 04:15 Eos # (Auto) 0.0 10^3/uL (0.0-0.8) 11/16/23 04:15 Baso # (Auto) 0.0 10^3/uL (0.0-0.1) 11/16/23 04:15 Nucleated RBC % (auto) 0 % 11/16/23 04:15 Nucleated RBCs # 0.0 /100WBC 11/16/23 04:15 APTT 53.0 SECONDS (23.9-36.7) H 11/15/23 12:16 Sodium 139 mmol/L (136-145) 11/16/23 04:15 Potassium 4.3 mmol/L (3.5-5.1) 11/16/23 04:15 Chloride 108 mmol/L (98-107) H 11/16/23 04:15 Carbon Dioxide 20 mmol/L (22-29) L 11/16/23 04:15 Anion Gap 15.3 (5-19) 11/16/23 04:15 BUN 12 mg/dL (8-23) 11/16/23 04:15 Creatinine 0.6 mg/dL (0.5-0.9) 11/16/23 04:15 GFR Calculation Not Reportable 11/16/23 04:15 Glucose 146 mg/dL (65-115) H 11/16/23 04:15 Estimat Average Glucose 134 11/15/23 04:00 Hemoglobin A1c 6.3 % (4.0-6.0) H 11/15/23 04:00 Calculated Osmolality 290 mOsm/kg (285-295) 11/16/23 04:15 Calcium 8.7 mg/dL (8.5-10.5) 11/16/23 04:15 Phosphorus 2.8 mg/dL (2.5-4.5) 11/15/23 04:00 Magnesium 1.9 mg/dL (1.7-2.3) 11/16/23 04:15 Total Bilirubin 0.7 mg/dL (0.15-1.2) 11/14/23 10:00 AST 32 U/L (0-32) 11/14/23 10:00 ALT 28 U/L (0-33) 11/14/23 10:00 Alkaline Phosphatase 95 U/L (35-105) 11/14/23 10:00 Troponin T Baseline 41 ng/L (0-10) H 11/14/23 14:20 Troponin T 120 Minute 72.09 ng/L (0-10) H 11/14/23 16:27 Delta Troponin T 31.09 ABS# (0-10) H* 11/14/23 16:27 Troponin T Hi Sens 6Hr 162.4 ng/L (0-10) H 11/14/23 20:07 Troponin T Hi Sens 6Hr Delta 121.4 ng/L (0-12) H* 11/14/23 20:07 Total Protein 6.8 g/dL (6.6-8.7) 11/14/23 10:00 Albumin 4.3 g/dL (3.5-5.2) 11/14/23 10:00 Globulin 2.5 g/dL (1.3-4.6) 11/14/23 10:00 Triglycerides 210 mg/dL (0-150) H 11/15/23 04:00 Cholesterol 173 mg/dL (0-200) 11/15/23 04:00 LDL Cholesterol, Calc 99 mg/dL (50-129) 11/15/23 04:00 HDL Cholesterol 32 mg/dL (60-100) L 11/15/23 04:00 LDL/HDL Ratio 3.09 RATIO (0.00-3.22) 11/15/23 04:00 Cholesterol/HDL Ratio 5.41 mg/dL (0.0-4.40) H 11/15/23 04:00 Lipase 16 U/L (13-60) 11/14/23 10:00 TSH 1.85 uIU/mL (0.27-4.20) 11/15/23 04:00 Urine Color Yellow (Yellow) 11/14/23 10:58 Urine Appearance Hazy (CLEAR) A 11/14/23 10:58 Urine pH 5 (5-7) 11/14/23 10:58 Ur Specific [place] 1.025 (1.005-1.030) 11/14/23 10:58 Urine Protein Trace (Negative) 11/14/23 10:58 Urine Glucose (UA) Norm (Normal) 11/14/23 10:58 Urine Ketones 2+ (Negative) H 11/14/23 10:58 Urine Blood Trace (Negative) H 11/14/23 10:58 Urine Nitrate Negative (Negative) 11/14/23 10:58 Urine Bilirubin 1+ (Negative) H 11/14/23 10:58 Urine Urobilinogen 1 mg/dL (Negative) H 11/14/23 10:58 Ur Leukocyte Esterase Negative (Negative) 11/14/23 10:58 Urine RBC Rare /hpf (0-2) 11/14/23 10:58 Urine WBC 5-10 /hpf (0-5) H 11/14/23 10:58 Ur Squamous Epith Cells 0-4 /hpf (0-5) H 11/14/23 10:58 Amorphous Sediment Not Reportable 11/14/23 10:58 Urine Bacteria Trace /hpf (NONE) 11/14/23 10:58 Urine Mucus 2+ /hpf 11/14/23 10:58 Coronavirus 229E (PCR) Not detected (NOT DETECT) 11/14/23 10:08 SARS-CoV-2 (PCR) Not detected (NOT DETECT) 11/14/23 10:08 A&P Assessment and plan (1) Unstable angina pectoris: Patient is currently pain-free. May continue on the current medication. The cardiac catheterization findings were discussed with the patient in detail. Based on the angiogram findings, will try to optimize medical treatment. She will be kept on the Plavix for 3 months along with the baby aspirin. Continue the metoprolol and the Lipitor. (2) Tobacco use: Patient strongly advised to quit smoking. (3) Acquired hypothyroidism: Clinically she seems to be euthyroid. May continue on the current management. (4) Acute non-ST elevation myocardial infarction (NSTEMI): As mentioned above Plan If the patient continues remain stable, may be discharged home today. Please make an appointment to be seen of the [facility] in 1 week. Patient is planning to go back to [place] and have follow-up there with her physicians there. If she is wanting to come back to our services, may make an appointment to be seen at the [facility] in 1 month Attestations Medical Necessity Statement*: Disposition as per the primary Coding Level of Care Code 00225 Diagnoses Unstable angina pectoris I20.0 Tobacco use Z72.0 Acquired hypothyroidism E03.9 Acute non-ST elevation myocardial infarction (NSTEMI) I21.4
--- NOTE | 2023-11-16 12:57 | P.DS_ITS ---
Discharge Providers Date of Admission: 11/14/23 11:11 Date of Discharge: November 16, 2023 Attending Provider at Admission: Benny Singh DO Attending Provider at Discharge: Karyn Gilbert MD Primary Care Provider: Melly Balbuena MD Diagnoses at Discharge Discharge Diagnosis (1) Unstable angina pectoris: Status: Acute (2) Tobacco use: Status: Acute (3) Acquired hypothyroidism: Status: Acute (4) Acute non-ST elevation myocardial infarction (NSTEMI): Status: Acute Reason for Visit Reason for Visit: chest pains, pain upper back Brief History: as per dr. singh Carmenza Oscar is a 73 year old female with a past medical history of hypothyroidism, who presented to the emergency room today with chest pain that radiated into her neck, jaw and left upper arm. She reports she has never had any symptoms like this in the past. She denies any previous cardiac history, but does endorse daily cigarette use. She describes pain as a tightness across the left side of her chest that worsens with activity and improved with nitro administration. She said that she was not short of breath, but she did feel she was having difficulty taking a full breath. She also reports that she has had some gastrointestinal symptoms recently, with nausea and diarrhea, but no other illness. In the emergency room, she was noted to have some mild ST-T depression in leads V4-6. Chest pain improved with Nitropaste. Her labs demonstrated a mild leukocytosis to 12.4. Her glucose was 156 this morning. Her initial troponin was 11. Chest x-ray was unremarkable. Hospital Course Hospital Course As per Dr. MendezPatient admitted for chest pain and then for NSTEMI. Underwent cardiac angiogram with 100% RCA total occlusion, 60 to 70% disease in LAD. Did not undergo PCI. Patient does have lots of collaterals by RCA. Official cath report is pending at this time. Patient has chest pain-free at this time and will be discharged home in stable condition. She was seen by cardiology during hospital stay and is to follow-up with a orthopedic shoe fitter outpati ent. She states she has a doctor in [place] that she would like to see. Her primary will refer her there. She says she was visiting family in [place] and that is why ended up in the hospital. Echo shows LVEF 76%, grade 1.4 diastolic dysfunction. Recommend patient to be on aspirin and Plavix x 3 months at least. Had beta- paddy and atorvastatin. Discussed with patient the importance of the medications and she verbalized understanding. Right wrist approach was used for cath. Discharged home in stable condition today. Physical Exam Narrative: General: Cooperative patient in no apparent distress. Well developed. HEENT: Normocephalic, Atraumatic. External ears normal. Nasal passages patent without drainage. MMM. Heart: RRR. Resp: LCTA. No respiratory distress, no use of accessory muscles. Abd: Soft, non-tender. Non-distended. Extremities: No edema. Skin: No rash or lesions on exposed areas. Discharge Data Studies Completed and Pending Completed Studies During Hospitalization Category Date Time Status DISTRIBUTION OPERATION SUPERVISOR request for service Routine Exams 11/15/23 12:42 Completed XR chest 1V portable [id number] Stat Exams 11/14/23 09:45 Completed CV. echo complete* [id number] Routine Ultrasound 11/15/23 08:59 Completed Pending at discharge Category Date Time Status Clostridium Difficile PCR Routine Lab 11/14/23 18:00 Received Platelet Count Q2D Lab 11/18/23 04:00 Ordered Radiology Impressions Chest X-Ray 11/14/23 09:45 IMPRESSION: Negative chest exam. Laboratory Results WBC 4.40 10^3/uL (3.29-11.43) 11/16/23 04:15 RBC 4.22 10^6/uL (3.85-5.65) 11/16/23 04:15 Hgb 12.50 g/dL (11.27-16.99) 11/16/23 04:15 Hct 37.2 % (36-47) 11/16/23 04:15 MCV 88.2 fl (85-98) 11/16/23 04:15 MCH 29.6 pg (27-33) 11/16/23 04:15 MCHC 33.6 g/dL (30-55) 11/16/23 04:15 RDW 12.4 % (12.1-15.1) 11/16/23 04:15 Plt Count 269 10^3/cmm (157-399) 11/16/23 04:15 MPV 9.5 fL (7.4-10.4) 11/16/23 04:15 Neut % (Auto) 69.6 % 11/16/23 04:15 Lymph % (Auto) 25.2 % 11/16/23 04:15 Stoddard % (Auto) 4.5 % 11/16/23 04:15 Eos % (Auto) 0.0 % 11/16/23 04:15 Baso % (Auto) 0.2 % 11/16/23 04:15 Neut # (Auto) 3.06 10^3/uL (1.8-7.7) 11/16/23 04:15 Lymph # (Auto) 1.1 10^3/uL (0.8-4.8) 11/16/23 04:15 Stoddard # (Auto) 0.2 10^3/uL (0.2-0.9) 11/16/23 04:15 Eos # (Auto) 0.0 10^3/uL (0.0-0.8) 11/16/23 04:15 Baso # (Auto) 0.0 10^3/uL (0.0-0.1) 11/16/23 04:15 Nucleated RBC % (auto) 0 % 11/16/23 04:15 Nucleated RBCs # 0.0 /100WBC 11/16/23 04:15 APTT 53.0 SECONDS (23.9-36.7) H 11/15/23 12:16 Sodium 139 mmol/L (136-145) 11/16/23 04:15 Potassium 4.3 mmol/L (3.5-5.1) 11/16/23 04:15 Chloride 108 mmol/L (98-107) H 11/16/23 04:15 Carbon Dioxide 20 mmol/L (22-29) L 11/16/23 04:15 Anion Gap 15.3 (5-19) 11/16/23 04:15 BUN 12 mg/dL (8-23) 11/16/23 04:15 Creatinine 0.6 mg/dL (0.5-0.9) 11/16/23 04:15 GFR Calculation Not Reportable 11/16/23 04:15 Glucose 146 mg/dL (65-115) H 11/16/23 04:15 Estimat Average Glucose 134 11/15/23 04:00 Hemoglobin A1c 6.3 % (4.0-6.0) H 11/15/23 04:00 Calculated Osmolality 290 mOsm/kg (285-295) 11/16/23 04:15 Calcium 8.7 mg/dL (8.5-10.5) 11/16/23 04:15 Phosphorus 2.8 mg/dL (2.5-4.5) 11/15/23 04:00 Magnesium 1.9 mg/dL (1.7-2.3) 11/16/23 04:15 Total Bilirubin 0.7 mg/dL (0.15-1.2) 11/14/23 10:00 AST 32 U/L (0-32) 11/14/23 10:00 ALT 28 U/L (0-33) 11/14/23 10:00 Alkaline Phosphatase 95 U/L (35-105) 11/14/23 10:00 Troponin T Baseline 41 ng/L (0-10) H 11/14/23 14:20 Troponin T 120 Minute 72.09 ng/L (0-10) H 11/14/23 16:27 Delta Troponin T 31.09 ABS# (0-10) H* 11/14/23 16:27 Troponin T Hi Sens 6Hr 162.4 ng/L (0-10) H 11/14/23 20:07 Troponin T Hi Sens 6Hr Delta 121.4 ng/L (0-12) H* 11/14/23 20:07 Total Protein 6.8 g/dL (6.6-8.7) 11/14/23 10:00 Albumin 4.3 g/dL (3.5-5.2) 11/14/23 10:00 Globulin 2.5 g/dL (1.3-4.6) 11/14/23 10:00 Triglycerides 210 mg/dL (0-150) H 11/15/23 04:00 Cholesterol 173 mg/dL (0-200) 11/15/23 04:00 LDL Cholesterol, Calc 99 mg/dL (50-129) 11/15/23 04:00 HDL Cholesterol 32 mg/dL (60-100) L 11/15/23 04:00 LDL/HDL Ratio 3.09 RATIO (0.00-3.22) 11/15/23 04:00 Cholesterol/HDL Ratio 5.41 mg/dL (0.0-4.40) H 11/15/23 04:00 Lipase 16 U/L (13-60) 11/14/23 10:00 TSH 1.85 uIU/mL (0.27-4.20) 11/15/23 04:00 Urine Color Yellow (Yellow) 11/14/23 10:58 Urine Appearance Hazy (CLEAR) A 11/14/23 10:58 Urine pH 5 (5-7) 11/14/23 10:58 Ur Specific Murdock 1.025 (1.005-1.030) 11/14/23 10:58 Urine Protein Trace (Negative) 11/14/23 10:58 Urine Glucose (UA) Norm (Normal) 11/14/23 10:58 Urine Ketones 2+ (Negative) H 11/14/23 10:58 Urine Blood Trace (Negative) H 11/14/23 10:58 Urine Nitrate Negative (Negative) 11/14/23 10:58 Urine Bilirubin 1+ (Negative) H 11/14/23 10:58 Urine Urobilinogen 1 mg/dL (Negative) H 11/14/23 10:58 Ur Leukocyte Esterase Negative (Negative) 11/14/23 10:58 Urine RBC Rare /hpf (0-2) 11/14/23 10:58 Urine WBC 5-10 /hpf (0-5) H 11/14/23 10:58 Ur Squamous Epith Cells 0-4 /hpf (0-5) H 11/14/23 10:58 Amorphous Sediment Not Reportable 11/14/23 10:58 Urine Bacteria Trace /hpf (NONE) 11/14/23 10:58 Urine Mucus 2+ /hpf 11/14/23 10:58 Coronavirus 229E (PCR) Not detected (NOT DETECT) 11/14/23 10:08 SARS-CoV-2 (PCR) Not detected (NOT DETECT) 11/14/23 10:08 Vitals Last Vital Signs Temp 98.4 F 11/16/23 09:01 Pulse 66 11/16/23 09:01 Resp 18 11/16/23 09:01 BP 141/74 11/16/23 09:01 Pulse Ox 96 11/16/23 03:43 O2 Del Method Room Air 11/16/23 03:43 Discharge Plan Discharge Patient Disposition: Home Condition: Stable Prescriptions: New famotidine 20 mg Tablet 20 mg PO BID Qty: 60 0RF atorvastatin 40 mg Tablet 80 mg PO BEDTIME Qty: 30 0RF metoprolol tartrate 25 mg Tablet 25 mg PO BID@0900,2100 Qty: 60 0RF aspirin 81 mg Tablet,Delayed Release (Dr/Ec) 81 mg PO DAILY Qty: 30 0RF Continued levothyroxine 88 mcg tablet 88 mcg PO DAILY Vitamin D3 25 mcg (1,000 unit) Tablet 25 mcg PO DAILY Women's 50 Plus Multivitamin 400 mcg-500 mg calcium-20 mcg Tablet 1 tab PO DAILY Probiotic 100 billion cell Capsule 1 cap PO DAILY Held quercetin 500 mg Capsule 500 mg PO DAILY Hold Instructions: see pcp Discharge Orders: Discharge Order (Routine); Ordered 11/16/23 Ordered By: Karyn Gilbert Referrals: Melly Balbuena MD [Primary Care Provider] - 11/22/23 10:00 am (Please keep your appointment Melly Balbuena on Wednesday at 10:00a.m. Please arrive 15 minutes early for this appointment. ) Discharge Diet: Cardiac Discharge Activity: Resume usual activity Patient Instructions: Metoprolol (By mouth) (Lopressor, Toprol XL), Famotidine (By mouth), Aspirin (By mouth), Atorvastatin (By mouth) (Lipitor, Atorvaliq), Heart Attack (DC), Chest Pain (DC), Coronary Angioplasty (DC), How to Stop Smoking (DC), Opioid Safety, Post Angiogram Home Care Instructions Discharge Attestations Time Spent in Discharge Care*: greater than 30 min Quality Metrics Clinical Quality Measures [ No reported AMI, CVA or VTE this stay] Coding Level of Care Code 41306 Total time (in minutes) for Discharge: 45 Diagnoses Unstable angina pectoris I20.0 Tobacco use Z72.0 Acquired hypothyroidism E03.9 Acute non-ST elevation myocardial infarction (NSTEMI) I21.4
[2023-11-16 14:11] LABS: Clostridium Difficile PCR NOT DETECTED (NOT DETECTED)
--- NOTE | 2023-11-16 15:33 | PC.NURSE ---
Discharge Note Patient discharged to home via POV accompanied by family. Discharge instructions reviewed with patient and/or door to door sales representative. Mobile pharmacy medications and/or prescriptions provided. Belongings/home medications returned.
== END 2023-11-16 15:35 | disposition home or self-care (01) ==
LOC: ER 11:11 → CSU 11:44
PROVIDERS: Internal Medicine; Internal Medicine Cardiovascular Disease; Admitting Provider Family Medicine; Emergency Provider Family Medicine; PCP Family Medicine; Visit Provider Internal Medicine
DX: I21.4 Non-ST elevation (NSTEMI) myocardial infarction (principal); I20.0 Unstable angina; Z72.0 Tobacco use; E03.9 Hypothyroidism, unspecified; Z87.891 Personal history of nicotine dependence; R73.9 Hyperglycemia, unspecified; E87.1 Hypo-osmolality and hyponatremia; Z82.49 Family history of ischemic heart disease and other diseases of the circulatory system
CPT/HCPCS: 36415; 71045; 80048; 80053; 80061; 81001; 83036; 83690; 83735; 84100; 84443; 84484; 85025; 85730; 87493; 87635; 93005; 93306; 93458; 93571; 96365; 96376; 99152; 99153; 99285; C1769; C1887; C1894; G0378; J1200; J1644; J2250; J2930; J3010; J3490; J7030; Q9967

== ENCOUNTER → 2024-03-02 13:43 | Outpatient (BNVA) | payer MEDICARE, SELFPAY | PROVIDERS: PCP Family Medicine; Referring Provider Family Medicine; Visit Provider Internal Medicine | DX: R07.9 Chest pain, unspecified (principal); I49.3 Ventricular premature depolarization; I25.10 Atherosclerotic heart disease of native coronary artery without angina pectoris; Z72.0 Tobacco use; R94.31 Abnormal electrocardiogram [ECG] [EKG] | CPT/HCPCS: 93005; 99204 ==

== ENCOUNTER 2024-03-09 09:15 | Outpatient (CLI) | payer MEDICARE, SELFPAY ==
[2024-03-09 10:33] LABS: Chol HDL Ratio 4.24 mg/dL (0.0-4.40); Cholesterol 144 mg/dL (0-200); HDL Cholesterol 34 mg/dL (60-100); LDL Cholesterol Calculated 69 mg/dL (50-129); LDL HDL Ratio 2.03 RATIO (0.00-3.22); Triglycerides 204 mg/dL (0-150)
== END 2024-03-09 09:16 | disposition home or self-care (01) ==
LOC: LAB 09:16
PROVIDERS: PCP Family Medicine; Visit Provider Internal Medicine
DX: E78.5 Hyperlipidemia, unspecified (principal)
CPT/HCPCS: 36415; 80061

== ENCOUNTER → 2024-08-02 10:20 | Outpatient (BNVA) | payer MEDICARE, SELFPAY | PROVIDERS: PCP Family Medicine; Visit Provider Internal Medicine | DX: I25.10 Atherosclerotic heart disease of native coronary artery without angina pectoris (principal); Z72.0 Tobacco use | CPT/HCPCS: 99214 ==

== ENCOUNTER 2024-08-04 09:05 | Outpatient (CLI) | payer MEDICARE, SELFPAY ==
--- NOTE | 2024-08-04 09:23 | USCV_ITS ---
Carmenza Oscar Age: 73 Gender: F : 1950 Exam Date: 08/04/2024 09:29 Ordering Phys: Melly Balbuena MD Technologist: [employer] Exam Location: [facility] [place] Indication: aaa HISTORY: Diameter (cm) AP x Transverse x Length Velocity (cm/s) Waveform Prox Aorta: 1.48 x 1.58 x 70.70 Mid Aorta: 2.28 x 2.05 x 2.70 72.40 Distal Aorta: 1.22 x 1.26 x 58.10 Right Iliac Prox: 0.53 x 0.63 x 151.10 Left Iliac Prox: 0.53 x 0.64 x 108.50 Stent Prox Landing x x Aneurysmal Sac Max x x Lt Lat Sac Dim Rt Lat Sac Dim Stent Dist Landing x x Right Iliac Stent x x Left Iliac Stent x x Right Renal Art Left Renal Art FINDINGS: Comparison: none available. Ectatic abdominal aorta with evidence of atherosclerotic plaque noted. No evidence of abdominal aortic aneurysm. There is evidence of atherosclerotic plaque no significan stenosis in the right common iliac artery. There is evidence of atherosclerotic plaque no significan stenosis in the left common iliac artery. CONCLUSIONS No evidence of abdominal aortic aneurysm. Dr. Azra Jackson DO (Electronically Signed) Final Date: 04 August 2024 11:14 S
== END 2024-08-04 09:06 | disposition home or self-care (01) ==
LOC: RAD 09:06
PROVIDERS: PCP Family Medicine; Visit Provider Family Medicine
DX: I77.811 Abdominal aortic ectasia (principal); I70.8 Atherosclerosis of other arteries
CPT/HCPCS: 76706

== ENCOUNTER 2024-08-23 13:42 | Outpatient (CLI) | payer MEDICARE, SELFPAY ==
--- NOTE | 2024-08-23 13:46 | CTR_ITS ---
PROCEDURE INFORMATION: Exam: CT Abdomen And Pelvis With Contrast Exam date and time: 08/23/2024 3:50 PM Age: 73 years old Clinical indication: Abdominal pain; Localized; Lower; Prior surgery; Surgery date: 6+ months; Surgery type: Hyst, gb, colon resection; Patient HX: HX of colon cancer; Additional info: Generalized abdominal pain TECHNIQUE: Imaging protocol: Computed tomography of the abdomen and pelvis with contrast. Radiation optimization: All CT scans at this facility use at least one of these dose optimization techniques: automated exposure control; mA and/or kV adjustment per patient size (includes targeted exams where dose is matched to clinical indication); or iterative reconstruction. Contrast material: OMNI 350; Contrast volume: 100 ml; Contrast route: INTRAVENOUS (IV); COMPARISON: CR XR chest 1V portable [id number] 11/14/2023 10:13 AM RADIATION DOSE METRICS: Total DLP (mGy-cm): 273.19 FINDINGS: Lungs: Tiny amounts of scarring and subsegmental atelectasis in the lung bases. 5 mm solid noncalcified nodule posteromedial left lung base. Liver: Mild, diffuse fatty infiltration of the liver. Mild hepatomegaly. Otherwise, unremarkable. Gallbladder and biliary ducts: Cholecystectomy. Unremarkable bile ducts. Pancreas: Normal. No ductal dilation. Spleen: Normal. No splenomegaly. Adrenal glands: Normal. No mass. Kidneys and ureters: A few simple appearing left renal cysts, the largest measuring 11 cm in maximum dimension, need no follow-up. Otherwise, unremarkable. Stomach and bowel: Partial bowel malrotation. Surgical sutures distal sigmoid colon. Otherwise, unremarkable. Appendix: Normal appendix. Intraperitoneal space: Unremarkable. No free air. No significant fluid collection. Vasculature: Large amount of arterial plaque. Saccular aneurysm of the infrarenal abdominal aorta measuring 2.7 cm in maximum diameter. At least 50-69% diameter stenosis proximal right renal artery. 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 These are believed to be chronic. Calcified phleboliths in the pelvis. Otherwise, unremarkable. Lymph nodes: Unremarkable. No enlarged lymph nodes. Urinary bladder: Unremarkable as visualized. Reproductive: Hysterectomy. Otherwise, unremarkable. Bones/joints: Minimal and mild multilevel spondylosis. Otherwise, unremarkable. Soft tissues: Otherwise, unremarkable visualized body wall. Otherwise, unremarkable soft tissues. CT/CT abdomen pelvis w con* [id number] IMPRESSION: 1. Mild, diffuse fatty infiltration of the liver. 2. Mild hepatomegaly. 3. 5 mm solid noncalcified nodule left lung base. For patients at low risk (minimal or absent history of smoking and of other known risk factors), no routine follow-up is indicated. For patients at high risk (history of smoking or of other known risk factors), consider optional CT Chest at 12 months. (Reference: Joanna). 4. No other acute abdominal or pelvic findings. 5. Additional details as above. REFERENCES: Joanna Curiel, et al. Guidelines for Management of Incidental Pulmonary Nodules Detected on CT Images: From the Fleischner Society 2017. Radiology. 2017;284(1):228-243.
[2024-08-23] MEDS: iohexol 350 mg/mL 500 mL Btl (per mL) PO (14:35)
[2024-08-23] MEDS: iohexol 350 mg/mL 500 mL Btl (per mL) IV (16:04)
[2024-08-23 16:06] LABS: Blood Urea Nitrogen 13 mg/dL (8-23)
== END 2024-08-23 13:43 | disposition home or self-care (01) ==
PROVIDERS: PCP Family Medicine; Visit Provider Family Medicine
DX: I71.43 Infrarenal abdominal aortic aneurysm, without rupture (principal); K56.600 Partial intestinal obstruction, unspecified as to cause; Q61.02 Congenital multiple renal cysts; Z90.49 Acquired absence of other specified parts of digestive tract; Z90.710 Acquired absence of both cervix and uterus
CPT/HCPCS: 74177; 82565; 84520

== ENCOUNTER → 2025-02-13 09:03 | Outpatient (BNVA) | payer MEDICARE, SELFPAY | PROVIDERS: PCP Family Medicine; Visit Provider Nurse Practitioner Family | DX: I25.10 Atherosclerotic heart disease of native coronary artery without angina pectoris (principal); E03.9 Hypothyroidism, unspecified; Z72.0 Tobacco use | CPT/HCPCS: 99214 ==

== ENCOUNTER 2025-02-14 09:31 | Outpatient (CLI) | payer MEDICARE, SELFPAY ==
[2025-02-14 10:43] LABS: Chol HDL Ratio 3.47 mg/dL (0.0-4.40); Cholesterol 118 mg/dL (0-200); HDL Cholesterol 34 mg/dL (60-100); LDL Cholesterol Calculated 49 mg/dL (50-129); LDL HDL Ratio 1.44 RATIO (0.00-3.22); Triglycerides 176 mg/dL (0-150)
== END 2025-02-14 09:32 | disposition home or self-care (01) ==
LOC: LAB 09:34
PROVIDERS: PCP Family Medicine; Visit Provider Nurse Practitioner Family
DX: E03.9 Hypothyroidism, unspecified (principal)
CPT/HCPCS: 80061

== ENCOUNTER 2025-05-10 09:16 | Outpatient (CLI) | payer MEDICARE, SELFPAY ==
[2025-05-10 10:39] LABS: Cholesterol 214 mg/dL (0-200); HDL Cholesterol 34 mg/dL (60-100); Triglycerides 323 mg/dL (0-150)
== END 2025-05-10 09:17 | disposition home or self-care (01) ==
LOC: LAB 09:18
PROVIDERS: PCP Family Medicine; Visit Provider Nurse Practitioner Family
DX: E03.9 Hypothyroidism, unspecified (principal)
CPT/HCPCS: 36415; 80061

== ENCOUNTER → 2025-08-15 13:23 | Outpatient (BNVA) | payer MEDICARE, SELFPAY | PROVIDERS: PCP Family Medicine; Visit Provider Internal Medicine | DX: I25.10 Atherosclerotic heart disease of native coronary artery without angina pectoris (principal); Z72.0 Tobacco use | CPT/HCPCS: 99214 ==

== ENCOUNTER → 2025-08-30 12:50 | Outpatient (BNVA) | payer MEDICARE, SELFPAY | PROVIDERS: PCP Family Medicine; Visit Provider Student in an Organized Health Care Education/Training Program | DX: Z12.11 Encounter for screening for malignant neoplasm of colon (principal) | CPT/HCPCS: 99204 ==